=== PATIENT | female | born 1995 | race Caucasian/White ===

== ENCOUNTER 2024-11-30 11:19 | Emergency (ER) | payer OTHER, SELFPAY ==
[2024-11-30 11:20] VITALS: BP 163/70; PULSE 83; RESP 19; TEMP 36.7; O2SAT 100; BMI 29.1
[2024-11-30 12:25] LABS: Bacteria 0 SEEN /hpf (None Seen); Mucous, Urine 0 SEEN /hpf (<or=2+); Red Blood Cells-Urine 0 SEEN /hpf (0-5); Squamous Epithelial Cells - UA 0 SEEN /hpf (5-10); White Blood Cells 0 SEEN /hpf (0-5)
[2024-11-30 12:28] VITALS: BP 103/63; BP 109/76; BP 114/87; PULSE 100; PULSE 74; PULSE 79
[2024-11-30 12:33] LABS: Color, Urine Yellow (Yellow); Glucose, Dipstick Normal (Normal); Ketone-Dipstick Negative (Negative); Leukocyte Esterase-Dipstick Negative /ul (Negative); Nitrite-Dipstick Negative (Negative); Occult Blood-Urine Negative /ul (Negative); Protein-Dipstick 15 mg/dl (Negative); Specific Gravity, Urine 1.005 (1.002-1.030); Urine Bilirubin Dipstick Negative (Negative); Urine Clarity Clear (Clear); Urine Urobilinogen Normal (Normal)
[2024-11-30 12:41] LABS: Internal QC Validated? YES +Cl - CLEAR BKGD; Pregnancy, Urine Negative Negative
[2024-11-30] MEDS: 0.9% Normal Saline (1000mL) 1,000 ML 999 ML IV (12:53)
[2024-11-30 13:02] LABS: Absolute Lymphocyte Count 1.64 X10^3/uL (0.83-4.51); Absolute Neutrophil Count 3.1 X10^3/uL (2.0-7.7); Basophil# 0.02 X10^3/uL; Basophil% 0.4 % (0-1); Eosinophil# 0.11 X10^3/uL; Hematocrit 41.8 % (37-47); Hemoglobin 14.3 g/dL (12.0-15.0); Lymphocyte # 1.64 X10^3/ul (0.83-4.51); Lymphocyte % 30.4 % (19-41); Mean Corp Hgb Conc 34.2 g/dL (32-36); Mean Corpuscular Volume 90.7 fL (81-99); Mean Platelet Vol. 9.2 fl (6.2-12.0); Monocyte# 0.51 X10^3/uL; Monocyte% 9.5 % (0-10); NRBC Flagged by Analyzer 0 % (0-5); Neutrophil % 57.5 % (47-70); Platelet Count 314 K/mm3 (150-450); RBC Distribution Width SD 39.8 fl (35.1-43.9); Red Blood Count 4.61 M/mm3 (4.2-5.4); White Blood Count 5.4 K/mm3 (4.4-11.0)
[2024-11-30 13:19] VITALS: BP 109/80; PULSE 80; RESP 18; O2SAT 97
--- NOTE | 2024-11-30 13:31 | CM.ED ---
Social work Reason for referral: no PCP Referral source: case find This SW identified patient's lack of PCP and need for resources. This SW entered patient's room and introduced self and role at [facility]. Patient welcomed SW visit and patient's mother was bedside; patient confirmed patient's mother could remain bedside. Patient reports having a PCP that patient was going to go to today prior to the appointment getting canceled. Patient could not recall where this appointment was at. Patient accepted resources of [facility] Provider Directory and [facility] information. Patient asked for a cup of water; SW provided this after RN approval. Patient denied further needs at this time. Dina Zapata, POWER AND RECOVERY SUPERVISOR, PLEAT PATTERNMAKER
[2024-11-30 13:55] LABS: Anion Gap 10 (5-15); BUN 7 mg/dL (4-19); BUN/Creat Ratio 12.3 RATIO (10-20); Calcium,Total 9.5 mg/dL (7.6-11.0); Carbon Dioxide 23.8 mmol/L (21.0-32.0); Chloride 104 mmol/L (98-108); EST Glomerular Filtration Rate 124 (>60); Glucose 91 mg/dL (70-99); Magnesium 2.1 mg/dL (1.5-2.2); Potassium 4.3 mmol/L (3.3-5.1); Sodium Level 139 mmol/L (133-145); Thyroid Stim Hormone (TSH) 0.629 uIU/mL (0.300-4.200)
--- NOTE | 2024-11-30 14:08 | EX.ED.DYSGE1 ---
HPI History of Present Illness Chief Complaint: Eye Problem Informant: patient Narrative Narrative: Patient is a 29-year-old female denies any significant past medical history presenting for dizzy spells, near syncope with associated vision changes. Patient states last Tuesday (1 week ago) she started having dizziness. States she has vision changes where she thinks look like it was vibrating or she is seeing spots. She has some associated nausea with it. She struggles more with lightheadedness and denies a room spinning sensation. She states this week she is continue to have symptoms but they been more intermittent. She states sometimes she gets a numb or cold sensation throughout her body and into her legs. She has had some questionable heart palpitations. She generally feels weak. Denies any fever or chills. Denies any vomiting. Notes an episode of diarrhea once this week but her bowel moods have otherwise been normal. Her urine is normal darker but she does not think she has been keeping up with her fluid intake. She is trying to eating more and taking B12 with no significant proving. Denies any unintentional weight loss but has had unintentional weight gain over the past few months. Denies any swelling of her legs. Denies any family history of any significant medical issues. No other complaints or concerns at this time. [facility] Medical History Asthma Medical History no medical history Home Medications ?Medication ?Instructions ?Recorded ?Last Taken ?Type albuterol 90 mcg/actuation aerosol mcg inhalation 11/30/24 Unknown History inhaler meclizine 25 mg tablet 25 mg PO 4X/DAY PRN PRN Dizziness 11/30/24 Unknown Rx #20 tabs Allergy/AdvReac Type Severity Reaction Status Date / Time No Known Allergies Allergy Verified 11/30/24 11:20 Social History Smoking Status: Never smoker ROS ROS ED Constitutional Constitutional ED: Reports other Details: Dizziness ; Denies chills or fever(s) Eyes Eyes: Reports change in vision; Denies blurry vision or diplopia ENT ENT ED: Denies rhinorrhea or sore throat Cardiovascular Cardiovascular: Reports racing heartbeat; Denies chest pain Respiratory/Chest Respiratory/Chest: Denies cough or dyspnea Gastrointestinal Gastrointestinal: Reports diarrhea and nausea; Denies abdominal pain or vomiting Musculoskeletal Musculoskeletal: Denies arthralgias or myalgias Integumentary Denies rash Neurologic Neurologic: Reports headache(s), paresthesias and weakness Psychiatric Psychiatric: Reports anxiety Hematologic/Lymphatic Hematologic/Lymphatic: Denies easy bleeding or easy bruising EXAM Physical Exam Const Vital Signs: 11/30/24 11:20 11/30/24 12:21 11/30/24 12:28 Temperature 98.1 F Temperature Source Oral Pulse Rate 83 Pulse Rate [Lying] 74 Pulse Rate [Sitting (for 1 minute prior to obtaining)] 100 Pulse Rate [Standing (for 1 minute prior to obtaining)] 79 Respiratory Rate 19 H Respiratory Effort Normal Non-Labored Respiratory Pattern Normal Blood Pressure 163/70 H Blood Pressure [Lying] 103/63 Blood Pressure [Sitting (for 1 minute prior to obtaining)] 114/87 H Blood Pressure [Standing (for 1 minute prior to obtaining)] 109/76 Blood Pressure Mean 101 Blood Pressure Mean [Lying] 76 Blood Pressure Mean [Sitting (for 1 minute prior to obtaining)] 96 Blood Pressure Mean [Standing (for 1 minute prior to obtaining)] 87 Pulse Ox 100 Oxygen Delivery Method Room Air 11/30/24 13:19 11/30/24 15:00 Temperature 98.0 F Temperature Source Pulse Rate 80 70 Pulse Rate [Lying] Pulse Rate [Sitting (for 1 minute prior to obtaining)] Pulse Rate [Standing (for 1 minute prior to obtaining)] Respiratory Rate 18 18 Respiratory Effort Respiratory Pattern Blood Pressure 109/80 115/68 Blood Pressure [Lying] Blood Pressure [Sitting (for 1 minute prior to obtaining)] Blood Pressure [Standing (for 1 minute prior to obtaining)] Blood Pressure Mean 89 83 Blood Pressure Mean [Lying] Blood Pressure Mean [Sitting (for 1 minute prior to obtaining)] Blood Pressure Mean [Standing (for 1 minute prior to obtaining)] Pulse Ox 97 100 Oxygen Delivery Method Room Air Positive well nourished and well developed General Appearance ED: well developed and NAD; Negative for pallor HEENT Reports moist mucous membranes Eyes PERRL and EOMs intact bilaterally Eyes Narrative: No nystagmus appreciated Neck no lymphadenopathy and supple Chest Wall inspection of chest normal and palpation of chest normal Resp normal respiratory effort and clear to auscultation bilaterally Cardio regular rate, regular rhythm and no murmurs GI normal to inspection, nondistended, normoactive bowel sounds and non-tender Palpation: soft; Negative for tender or guarding Extremity normal to inspection General Extremety ED: Negative for edema or tenderness General Extremity: Negative for edema Neuro oriented x3, CN's II-XII intact bilaterally and no sensory deficits noted Neuro Narrative: Normal gait, normal ambulation Sensorium / Orientation: alert Motor Exam: strength 5/5 throughout Psych mental status grossly normal Mood & Affect: anxious Skin no wounds General Skin Exam: Negative for jaundice or pallor MDM MDM MDM Narrative Medical decision making narrative: Patient evaluated for week of dizziness. It sounds more like lightheadedness/near syncope. Orthostatics are obtained and patient is symptomatic when she stands up and her heart rate does jump up greater than 20 bpm. Her blood pressure however remains normal. Is given a liter of IV fluid and lab work is added on. Differential includes POTS, hypovolemia, electrolyte derangement, DEIDRE, urinary tract infection, arrhythmia, thyroid abnormality and peripheral vertigo/viral syndrome. Workup is largely negative. EKG shows normal sinus rhythm with no acute process. Patient does express frustration as she is post to see PCP for the symptoms today appointment is canceled or rescheduled for a month from now. Will give her referral to local PCPs for hopefully faster follow-up. Patient would like to try something to see if it helps with her symptoms. Will try meclizine in case that this is some type of vertigo. Counseled that it does not help she does not need to continue to take it. Discussed decreasing her caffeine to intake and pushing fluids. Counseled that the cause her symptoms is not clear at this time I do think she is safe to be discharged home and does not require admission to the hospital. She verbalized agreement understand this plan. Discharged home in stable condition. Lab Data Attestation: I reviewed the patient's lab results. Labs: Laboratory Results - last 24 hr 11/30/24 11/30/24 12:15 12:53 WBC 5.4 RBC 4.61 Hgb 14.3 Hct 41.8 MCV 90.7 MCH 31.0 MCHC 34.2 RDW Std Deviation 39.8 RDW Coeff of Rosa 12.0 Plt Count 314 MPV 9.2 Immature Gran % (Auto) 0.200 Neut % (Auto) 57.5 Lymph % (Auto) 30.4 [place] % (Auto) 9.5 Eos % (Auto) 2.0 Baso % (Auto) 0.4 Absolute Neuts (auto) 3.1 Absolute Lymphs (auto) 1.64 Nucleated RBC % 0 Sodium 139 Potassium 4.3 Chloride 104 Carbon Dioxide 23.8 Anion Gap 10 BUN 7 Creatinine 0.60 L Estim Creat Clear Calc 139.00 Est GFR (MDRD) Non-Af 124 BUN/Creatinine Ratio 12.3 Glucose 91 Calcium 9.5 Magnesium 2.1 TSH 0.629 Urine Color Yellow Urine Clarity Clear Urine pH 7.0 Ur Specific [place] 1.005 Urine Protein 15 H Urine Glucose (UA) Normal Urine Ketones Negative Urine Occult Blood Negative Urine Nitrite Negative Urine Bilirubin Negative Urine Urobilinogen Normal Ur Leukocyte Esterase Negative Urine RBC 0 SEEN Urine WBC 0 SEEN Ur Squamous Epith Cells 0 SEEN Urine Bacteria 0 SEEN Urine Mucus 0 SEEN Urine Test Negative Rhythm Strip Rhythm Strip: Sinus Rhythm Rate: 77 Ectopy: None EKG Initial EKG: Interpretation: Sinus Rhythm Comments: Normal sinus rhythm rate of 77 bpm Normal axis Normal intervals Normal ST segments Discharge Plan Triage Chief Complaint: Eye Problem ED Provider: Sherin Wilcox Dx/Rx/DC Orders Clinical Impression: Dizziness Instructions: ED Dizziness, Uncertain Cause Prescriptions: New meclizine 25 mg tablet 25 mg PO 4X/DAY PRN PRN (Reason: Dizziness) Qty: 20 0RF No Action albuterol 90 mcg/actuation aerosol inhalation Primary Care Provider: Care Physician,No Primary Referrals: Care Physician,No Primary [Primary Care Provider] - Shoshana Iyer, ASSISTANT OFFICE MANAGER-C [[facility]] - Print Language: Nigerian Disposition Disposition: Home, Self Care Discharge Date/Time: 11/30/24 15:01
[2024-11-30] MEDS: Meclizine HCl 25 MG Tablet PO (14:58)
[2024-11-30 15:00] VITALS: BP 115/68; PULSE 70; RESP 18; TEMP 36.7; O2SAT 100
== END 2024-11-30 15:01 | disposition home or self-care (01) ==
PROVIDERS: Emergency Provider Emergency Medicine; Visit Provider Emergency Medicine
DX: R55 Syncope and collapse (principal); R00.0 Tachycardia, unspecified; J45.909 Unspecified asthma, uncomplicated
CPT/HCPCS: 80048; 81001; 81025; 83735; 84443; 85025; 93005; 96360; 96361; 99285; A4216